=== PATIENT | male | born 1980 | race Caucasian/White ===

== ENCOUNTER 2020-09-30 15:59 | Emergency (ER) | payer OTHER ==
[~2020-09-30 15:59] MED LIST: IBUPROFEN800 M1 PO; PENICILLIN V P500 MG PO
[2020-09-30] MEDS ORDERED: AMOXICILLIN500 MG PO (17:50)
== END 2020-09-30 18:07 | disposition home or self-care (01) ==
LOC: FER 15:59
DX: K04.7 Periapical abscess without sinus (principal); Z23 Encounter for immunization
CPT/HCPCS: 90471; 90715